=== PATIENT | female | born 1995 | race Two or more races ===

== ENCOUNTER 2020-12-31 09:47 | Inpatient (IN) ==
[2020-12-31] MEDS ORDERED: CITRIC ACID/SODIUM CITRATE 30 ML UDCUP PO ONE (09:56)
[2020-12-31] MEDS ORDERED: CLINDAMYCIN INJ 900 MG/50 ML PREMIX IV ONE (09:56)
[2020-12-31] MEDS ORDERED: FAMOTIDINE 20 MG/2 ML VIAL IV ONE (09:56)
[2020-12-31] MEDS ORDERED: LACTATED RINGERS 1,000 ML IV SCH ×2 (10:00→15:30)
[2020-12-31] MEDS ORDERED: TRANEXAMIC ACID 1,000 MG/10 ML VIAL ONE (10:15)
[2020-12-31] MEDS ORDERED: miSOPROStoL 200 MCG TABLET ONE (10:15)
[2020-12-31] MEDS ORDERED: CARBOPROST TROMETHAMINE 250 MCG/ML AMP IM ONE (10:16)
[2020-12-31] MEDS ORDERED: OXYTOCIN/LR 20 UNIT/1,000 ML BAG IV ONE ×2 (10:16→15:20)
[2020-12-31] MEDS ORDERED: METHYLERGONOVINE 0.2 MG/1 ML AMP ONE (10:16)
[2020-12-31] MEDS ORDERED: SODIUM CHLORIDE 0.9% 100 ML IV ONE (10:18)
[2020-12-31 10:23] LABS: Basophils % 0.3 % (0.0-0.8); Eosinophils # 0.1 10*3/uL (0.0-0.87); Eosinophils % 0.5 % (0.00-10.9); Hematocrit 42.6 VOL% (35.7-47.0); Hemoglobin 13.4 GM/DL (12.0-16.0); Immature Granulocytes % 1.1 %; Immature Granulocytes Absolute 0.12 #; Lymphocytes # 2.1 10*3/uL (1.4-4.0); Lymphocytes % 19.2 % (21.3-54.2); Mean Corpuscular HGB Conc 31.5 GM/DL (32-36); Mean Corpuscular Volume 92.8 FL (87-102); Mean Platelet Volume 11.1 FL (9.6-12.0); Neutrophils % 71.9 % (38.7-73.9); Platelet Count 209 T/CUMM (130-400); Red Blood Count 4.59 MC/CUMM (3.8-5.5); Red Cell Distribution Width 13.4 % (9.3-17.3); White Blood Count 10.9 T/CUMM (4-12)
[2020-12-31 10:41] LABS: Alanine Aminotransferase 29 U/L (13-56); Albumin 2.9 G/DL (3.4-5.0); Alkaline Phosphatase 243 U/L (45-117); Aspartate Amino Transferase 16 U/L (0-37); Bilirubin,Total < 0.39 MG/DL (0.2-1.0); Blood Urea Nitrogen 11 MG/DL (7-18); Carbon Dioxide 23 MMOL/L (21-32); Estimated Glom Filtration Rate 115 ML/MIN; Glucose 73 MG/DL (74-106); Osmolality,Calculated 270.8 MOS/KG (273-304); Potassium 3.7 MMOL/L (3.5-5.1); Sodium 137 MMOL/L (136-145); Total Protein 6.9 G/DL (6.4-8.2)
[2020-12-31] MEDS ORDERED: OXYTOCIN/LR 30 UNIT/1,000 ML BAG IV ONE (12:00)
[2020-12-31] MEDS ORDERED: OXYTOCIN 10 UNIT/ML VIAL IM ONE (12:00)
[2020-12-31] MEDS ORDERED: ONDANSETRON 4 MG/2 ML VIAL ONE ×2 (13:41)
[2020-12-31] MEDS ORDERED: BUPIVACAINE SPINAL 0.75% 2 ML AMP SPINAL ONE (13:41)
[2020-12-31] MEDS ORDERED: DEXAMETHASONE 4 MG/1 ML VIAL ONE (13:41)
[2020-12-31] MEDS ORDERED: KETOROLAC 30 MG/1 ML VIAL ONE (13:46)
[2020-12-31] MEDS ORDERED: ACETAMINOPHEN INJ 1,000 MG/100 ML VIAL IV ONE (13:46)
[2020-12-31] MEDS ORDERED: PHENYLEPHRINE 1 MG/10 ML SYRINGE IV ONE (14:11)
[2020-12-31] MEDS ORDERED: fentaNYL 100 MCG/2 ML VIAL ONE (14:29)
[2020-12-31 14:46] LABS: Cord Venous Blood HCO3 23.6 MMOL/L; Cord Venous Blood PCO2 41.7 MMHG; Cord Venous Blood PO2 34.7 MMHG
[2020-12-31 14:50] LABS: Cord Arterial Blood HCO3 23.1 MMOL/L
[2020-12-31 14:51] LABS: Cord Venous Blood HCO3 23.8 MMOL/L; Cord Venous Blood PCO2 39.9 MMHG; Cord Venous Blood PO2 33.1 MMHG
[2020-12-31 15:15] LABS: Bacteria,Urine Occasional /HPF (Few); Bilirubin,Urine Negative (Negative); Blood, Urine Negative (Negative); Glucose,Urine (UA) Negative (Negative); Ketones,Urine 5 mg/dL (Negative); Mucus,Urine Occasional /LPF (Occasional); Nitrite,Urine Negative (Negative); Protein,Urine Negative; RBC,Urine <1 /HPF (0-4); Urine Appearance CLEAR (Clear); Urine Color Yellow (Yellow); Urine Specific Gravity 1.018 (1.001-1.035); Urine Urobilinogen < 2.0 EU/DL (0.2-1.0)
[2020-12-31] MEDS ORDERED: SIMETHICONE CHEW 80 MG TABLET PO PRN (15:20)
[2020-12-31] MEDS ORDERED: MAGNESIUM HYDROXIDE SUSP 30 ML UDCUP PO PRN (15:20)
[2020-12-31] MEDS ORDERED: ACETAMINOPHEN 325 MG TABLET PO PRN (15:20)
[2020-12-31] MEDS ORDERED: RHO(D) IMMUNE GLOBULIN 300 MCG SYRINGE IM ONE ×2 (15:20→16:30)
[2020-12-31] MEDS ORDERED: ONDANSETRON 4 MG/2 ML VIAL IV PRN (15:20)
[2020-12-31] MEDS ORDERED: PROMETHAZINE 25 MG/1 ML VIAL IM PRN (19:58)
[2020-12-31] MEDS: KETOROLAC 30 MG/1 ML VIAL IV PRN (20:13)
[2020-12-31] MEDS: DOCUSATE SODIUM 100 MG CAPSULE PO SCH (21:12)
[2020-12-31] MEDS: CLINDAMYCIN INJ 900 MG/50 ML PREMIX IV SCH (21:12)
[2020-12-31] MEDS ORDERED: diphenhydrAMINE 50 MG/1 ML VIAL IV PRN (21:31)
[2020-12-31] MEDS ORDERED: diphenhydrAMINE CAP 25 MG CAPSULE PO PRN (22:05)
[2020-12-31] MEDS ORDERED: hydrOXYzine HCL 25 MG/1 ML VIAL IM PRN (22:40)
[2021-01-01 01:14] LABS: Basophils % 0.1 % (0.0-0.8); Hematocrit 38.6 VOL% (35.7-47.0); Hemoglobin 12.4 GM/DL (12.0-16.0); Immature Granulocytes % 2.5 %; Lymphocytes # 1.4 10*3/uL (1.4-4.0); Lymphocytes % 8.4 % (21.3-54.2); Mean Corpuscular HGB Conc 32.1 GM/DL (32-36); Mean Corpuscular Volume 91.9 FL (87-102); Mean Platelet Volume 11.5 FL (9.6-12.0); Monocytes % 4.8 % (1.7-12.7); Neutrophils % 84.2 % (38.7-73.9); Platelet Count 178 T/CUMM (130-400); Red Cell Distribution Width 13.2 % (9.3-17.3); White Blood Count 16.1 T/CUMM (4-12)
[2021-01-01] MEDS: KETOROLAC 30 MG/1 ML VIAL IV PRN (01:47)
[2021-01-01] MEDS: CLINDAMYCIN INJ 900 MG/50 ML PREMIX IV SCH (04:30)
[2021-01-01 06:08] LABS: Basophils % 0.1 % (0.0-0.8); Hematocrit 34.1 VOL% (35.7-47.0); Hemoglobin 11.3 GM/DL (12.0-16.0); Immature Granulocytes % 0.6 %; Immature Granulocytes Absolute 0.08 #; Lymphocytes # 1.7 10*3/uL (1.4-4.0); Lymphocytes % 11.9 % (21.3-54.2); Mean Corpuscular HGB Conc 33.1 GM/DL (32-36); Mean Corpuscular Volume 90.9 FL (87-102); Mean Platelet Volume 11.4 FL (9.6-12.0); Monocytes % 7.8 % (1.7-12.7); Neutrophils % 79.6 % (38.7-73.9); Platelet Count 138 T/CUMM (130-400); Red Blood Count 3.75 MC/CUMM (3.8-5.5); Red Cell Distribution Width 13.2 % (9.3-17.3); White Blood Count 14.3 T/CUMM (4-12)
[2021-01-01] MEDS: DOCUSATE SODIUM 100 MG CAPSULE PO SCH ×2 (09:52→20:59)
[2021-01-01] MEDS: MAGNESIUM HYDROXIDE SUSP 30 ML UDCUP PO SCH (09:52)
[2021-01-01] MEDS: METOCLOPRAMIDE 10 MG TABLET PO SCH ×3 (09:52→20:59)
[2021-01-01] MEDS: MULTIVITAMIN (PRENATAL) TABLET PO SCH (09:52)
[2021-01-01] MEDS: IBUPROFEN 800 MG TABLET PO PRN (20:59)
[2021-01-02] MEDS: METOCLOPRAMIDE 10 MG TABLET PO SCH ×3 (04:21→20:29)
[2021-01-02] MEDS: MAGNESIUM HYDROXIDE SUSP 30 ML UDCUP PO SCH ×3 (05:08→20:51)
[2021-01-02] MEDS: DOCUSATE SODIUM 100 MG CAPSULE PO SCH ×2 (08:43→20:51)
[2021-01-02] MEDS: IBUPROFEN 800 MG TABLET PO PRN ×2 (08:43→20:29)
[2021-01-02] MEDS: MULTIVITAMIN (PRENATAL) TABLET PO SCH (08:43)
[2021-01-02] MEDS ORDERED: MAGNESIUM CITRATE 300 ML BOTTLE PO ONE (12:41)
[2021-01-03] MEDS: METOCLOPRAMIDE 10 MG TABLET PO SCH ×2 (03:43→12:23)
[2021-01-03] MEDS: IBUPROFEN 800 MG TABLET PO PRN (05:42)
[2021-01-03 07:56] VITALS: BP 127/76
[2021-01-03] MEDS: MULTIVITAMIN (PRENATAL) TABLET PO SCH (09:26)
[2021-01-03] MEDS: DOCUSATE SODIUM 100 MG CAPSULE PO SCH (09:26)
[2021-01-03] MEDS: MAGNESIUM HYDROXIDE SUSP 30 ML UDCUP PO SCH (09:28)
== END 2021-01-03 13:15 | disposition home or self-care (01) | DRG 784 ==
LOC: N.LD 09:47 → N.OB 19:45
PROVIDERS: ADMIT Obstetrics & Gynecology; ATTEND Obstetrics & Gynecology